=== PATIENT | female | born 1990 | race Caucasian/White ===

== ENCOUNTER 2020-11-21 05:52 | Inpatient (IN) ==
[2020-11-21] MEDS ORDERED: Metoclopramide 10 MG/2 ML VIAL IVP PRN (05:57)
[2020-11-21] MEDS ORDERED: *HR* Nalbuphine 10 MG/ML AMPUL IV PRN (05:57)
[2020-11-21] MEDS ORDERED: Lidocaine 1% 20 ML MDV INFILT PRN (05:57)
[2020-11-21] MEDS ORDERED: Naloxone 0.4 MG/ML INJ IVP PRN (05:57)
[2020-11-21] MEDS ORDERED: Famotidine 20 MG/2 ML VIAL IVP PRN (05:57)
[2020-11-21] MEDS ORDERED: Oxytocin 20 units/ LR 1000 mL 20 UNIT/1,000 ML BAG IVC SCH (06:00)
[2020-11-21] MEDS ORDERED: Ondansetron 4 MG/2 ML VIAL IVP PRN (06:00)
[2020-11-21 06:46] LABS: Basophils % 0.3 %; Eosinophils # 0.1 K/mcL (0.0-0.6); Eosinophils % 0.7 %; Hematocrit 37.7 % (35.3-44.9); Hemoglobin 12.7 g/dL (11.5-15.4); Immature Granulocytes % 0.7 % (0-4); Lymphocytes # 1.6 K/mcL (0.6-4.6); Lymphocytes % 21.5 %; Mean Corpuscular HGB Conc 33.7 g/dL (31.6-35.5); Mean Corpuscular Hemoglobin 29.8 pg (28.0-33.3); Mean Corpuscular Volume 88.5 fL (83.0-100.0); Mean Platelet Volume 10.4 fL (9.4-12.4); Monocytes # 0.5 K/mcL (0.0-1.3); Monocytes % 7.1 %; Neutrophils # 5.1 K/mcL (1.6-8.9); Platelet Count 145 K/mcL (140-400); Red Blood Count 4.26 M/mcL (3.82-4.97); Red Cell Distribution Width 13.8 % (11.5-14.5); Segmented Neutrophils % 69.7 %; White Blood Count 7.3 K/mcL (4.3-11.1)
[2020-11-21] MEDS: miSOPROStoL 25 MCG TABLET PO SCH ×2 (07:23→11:55)
[2020-11-21 09:26] LABS: Amphetamine Screen,Urine Negative ng/mL (Cutoff=1000); Barbiturate Screen,Urine Negative ng/mL (Cutoff=200); Benzodiazepines Screen,Urine Negative ng/mL (Cutoff=200); Cannabinoid Screen,Urine Negative ng/mL (Cutoff = 50); Cocaine Screen,Urine Negative ng/mL (Cutoff= 300); Opiate Screen,Urine Negative ng/mL (Cutoff=300); Phencyclidine Screen,Urine Negative ng/mL (Cutoff=25)
[2020-11-21] MEDS ORDERED: *HR* Metformin 500 MG TABLET PO ONE (10:12)
[2020-11-21] MEDS ORDERED: Fluconazole 150 MG TABLET PO ONE (11:39)
[2020-11-21] MEDS: Ringers Solution, Lactated 1,000 ML IVC SCH ×3 (16:43→22:53)
[2020-11-21] MEDS ORDERED: EPHEDrine 50 MG/ML VIAL IVP PRN (18:17)
[2020-11-21] MEDS: Epidural Premix (fent/bupiv) 110 ML EP SCH (22:52)
[2020-11-22] MEDS: Epidural Premix (fent/bupiv) 110 ML EP SCH (03:10)
[2020-11-22] MEDS ORDERED: Ringers Solution, Lactated 1,000 ML ONE (09:09)
[2020-11-22] MEDS ORDERED: Measles/Mumps/Rubella Vacc 0.5 ML VIAL SQ PRN (12:23)
[2020-11-22] MEDS ORDERED: Oxytocin 20 units/ LR 1000 mL 20 UNIT/1,000 ML BAG IVC ONE (12:23)
[2020-11-22] MEDS ORDERED: Rho Immune Globulin 1,500 UNIT SYRINGE IM PRN (12:23)
[2020-11-22] MEDS ORDERED: Lanolin 7 G OINT...G. TP PRN (12:23)
[2020-11-22] MEDS ORDERED: Benzocaine/Menthol 56 GM AEROSOL SPRAY TP PRN (12:23)
[2020-11-22] MEDS ORDERED: Oxytocin 20 units/ LR 1000 mL 20 UNIT/1,000 ML BAG IVC SCH (12:23)
[2020-11-22] MEDS: Acetaminophen 325 MG TABLET PO SCH ×2 (12:36→18:31)
[2020-11-22] MEDS: Ibuprofen 600 MG TABLET PO SCH ×2 (14:38→20:56)
[2020-11-23] MEDS: Acetaminophen 325 MG TABLET PO SCH (01:43)
[2020-11-23] MEDS: Ibuprofen 600 MG TABLET PO SCH ×2 (04:55→11:06)
[2020-11-23 05:51] LABS: Basophils % 0.2 %; Eosinophils # 0.1 K/mcL (0.0-0.6); Eosinophils % 0.8 %; Hematocrit 29.5 % (35.3-44.9); Immature Granulocytes % 0.5 % (0-4); Lymphocytes # 1.7 K/mcL (0.6-4.6); Lymphocytes % 14.2 %; Mean Corpuscular HGB Conc 33.9 g/dL (31.6-35.5); Mean Corpuscular Hemoglobin 30.6 pg (28.0-33.3); Mean Corpuscular Volume 90.2 fL (83.0-100.0); Mean Platelet Volume 10.7 fL (9.4-12.4); Monocytes % 8.4 %; Neutrophils # 9.1 K/mcL (1.6-8.9); Platelet Count 129 K/mcL (140-400); Red Blood Count 3.27 M/mcL (3.82-4.97); Red Cell Distribution Width 13.6 % (11.5-14.5); Segmented Neutrophils % 75.9 %
[2020-11-23 07:45] VITALS: BP 125/77
[2020-11-23] MEDS ORDERED: Prenatal Vit/FA 1 EACH TABLET PO SCH (09:00)
== END 2020-11-23 12:53 | disposition home or self-care (01) | DRG 807 ==
LOC: 1NENULAB 05:52 → 1NENUOBS 11-22 13:33
PROVIDERS: ADMIT Student in an Organized Health Care Education/Training Program; ATTEND Student in an Organized Health Care Education/Training Program